=== PATIENT | female | born 1985 | race Caucasian/White ===

== ENCOUNTER 2024-11-20 15:01 | Day surgery (SDC) | payer BC, SELFPAY ==
[2024-11-20] VITALS (9 sets, daily range): BP systolic 104–148; BP diastolic 60–90; BMI 35.3
--- NOTE | 2024-11-20 10:46 | ED.GENMED ---
History of Present Illness
General
Chief Complaint: Problems
Source: patient
Time Seen by Provider: 11/20/24 10:33
History of Present Illness
History of Present Illness:
38-year-old female presents to the emergency room with concern for an ectopic . Patient is known to be with her last menstrual period August. Patient was seen in her analysis tester today and had a routine screening ultrasound
performed in the office. There was concern for an ectopic . Patient has no abdominal pain, vaginal bleeding. She has had 1 previous and does have 1 child.
Past History
Past History
ED Past Medical History: None
ED Past Surgical History: None
Phy Exam
Physical Exam
Physical Exam:
General: Awake, Alert, Oriented X3. No acute distress.
Vitals: unremarkable
Head: Atraumatic
Eyes: Pupils equal, EOMI
Throat: Airway intact, no exudates
Neck: Trachea midline
Lungs: Clear and equal b/l
Heart: Regular rate, no murmurs
Abd: Soft, Nontender, No pulsatile mass
Neuro: Nonfocal
Skin: Warm, dry, no rash
Extremities: pulses equal b/l, no edema
Course
Orders/Labs/Results
Orders:
Orders
11/20/24 Lunch
NPO
Allow oral meds: Yes
Allow clear liquids: No
11/20/24 10:33
US 1st Trimester Urgent
Comment:
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
11/20/24 10:50
Type+Screen Urgent
Beta HCG Quantitative Urgent
Is this a screen?: No
Complete Blood Count/No Diff Urgent
Comprehensive Metabolic Panel Urgent
11/20/24 13:49
Fentanyl Citrate/Pf [Sublimaze] 100 mcg .ROUTE .STK-MED ONE
Midazolam HCl [Versed] 2 mg .ROUTE .STK-MED ONE
11/20/24 13:52
Lidocaine HCl/Pf [Xylocaine-Mpf 1% Vial] 50 mg .ROUTE .STK-MED ONE
Phenylephrine [Adam-Synephrine] 10 mg .ROUTE .STK-MED ONE
Propofol [Diprivan] 20 ml .ROUTE .STK-MED
Rocuronium Modena [Rocuronium] 50 mg .ROUTE .STK-MED ONE
11/20/24 13:54
HYDROmorphone [Dilaudid] 0.25 mg IV PACU-Q5MPRN PRN
HYDROmorphone [Dilaudid] 0.5 mg IV PACU-Q5MPRN PRN
Meperidine [Demerol] 12.5 mg IV PACU-Q5MPRN PRN
Ondansetron Injectable [Zofran] 4 mg IV PACU-ONCEPRN PRN
Prochlorperazine [Compazine] 5 mg IV PACU-ONCEPRN PRN
Rocuronium Modena [Rocuronium] 50 mg .ROUTE .STK-MED ONE
Notify MD As Directed
Notify physician if: for SDS patients with known or suspected sleep obstructive sleep apnea, monitor in the
PACU.
Notify MD for any apneic/desaturation episodes
O2 Therapy [RESP] Urgent
Titrate/Wean O2 to maintain O2 sat greater than (%): 92
Special Instructions: -Provide supplemental oxygen to achieve O2 sat of 92% or greater.
-After 15 min, may wean O2 and discontinue if patient is able to maintain O2 sat of 92%
or greater during recovery period.
If patient is a discharge home, without oxygen therapy, notify anestheiologist if
unable to maintain O2 SAT of 92% or greater on room air for MD clearance.
11/20/24 13:56
Phenylephrine HCl/0.9% NaCl [Adam-Synephrine] 1,000 mcg .ROUTE .STK-MED ONE
11/20/24 13:57
Dexmedetomidine HCl [Precedex] 200 mcg .ROUTE .STK-MED ONE
11/20/24 14:00
0.9% Sodium Chloride 500 ml [Nss] 500 ml IV 125 mls/hr
Normosol (Mult Electrolytes) [Normosol-R/Plasmalyte-A] 1,000 ml IV PER PROTOCOL
11/20/24 14:08
Bupivacaine Mpf 0.25% [Sensorcaine-Mpf 0.25% Vial] 30 ml .ROUTE .STK-MED ONE
11/20/24 14:29
Dexamethasone Sod Phosphate [Decadron] 20 mg .ROUTE .STK-MED ONE
Magnesium Sulfate 5 grams .ROUTE .STK-MED ONE
Ondansetron Injectable [Zofran] 4 mg .ROUTE .STK-MED ONE
11/20/24 14:35
Acetaminophen 1000MG/100Ml [Ofirmev] 1,000 mg in 100 ml .ROUTE .STK-MED
11/20/24 14:54
HYDROmorphone [Dilaudid] 1 mg .ROUTE .STK-MED ONE
11/20/24 14:57
Rocuronium Modena [Rocuronium] 50 mg .ROUTE .STK-MED ONE
Abnormal Lab Results
11/20/24
10:50
RBC 3.98 L 10^6/uL
(4.20-5.40)
Hct 33.4 L %
(37.0-47.0)
Chloride 109 H mmol/L
(98-107)
BUN 19 H mg/dl
(7-17)
Creatinine 1.1 H mg/dL
(0.6-1.0)
11/20/24 10:50
11/20/24 10:50
Vital Signs
Initial and Last Documented VS:
Initial Vital Signs
Temp Pulse Resp BP Pulse Ox
98.6 F 62 16 146/90 99
11/20/24 10:28 11/20/24 10:28 11/20/24 10:28 11/20/24 10:28 11/20/24 10:28
Last Documented Vital Signs
Temp Pulse Resp BP Pulse Ox
98.6 F 62 16 148/81 99
11/20/24 10:28 11/20/24 10:28 11/20/24 10:28 11/20/24 10:45 11/20/24 10:45
Information
Weeks gestation: Weeks: (6)
Location: Location: (ectopic)
MDM/Problems Addressed
Differential Diagnosis Includes:
Ectopic , intrauterine , nondiagnostic ultrasound
MDM/Problems Addressed:
Patient presents after abnormal ultrasound in an outpatient setting. We will obtain a formal ultrasound and an hCG. CMP ordered as well in case she needs methotrexate.
Ultrasound confirmed the presence of a right adnexal lesion suggestive of a ectopic . There is no yolk sac or pole identified. The patient remains hemodynamically stable and does not really have any abdominal pain. A quantitative
hCG was found to be greater than 10,000. Dr. Rajan came and evaluated the patient here at bedside. Decision made to treat this ectopic operatively. Patient instructed to remain NPO.
*Radiology
Radiology exam reviewed: radiology read reviewed
*Critical Care Note
Total Time (30-74mins, 75-104mins- exclusive of procedures): Not Applicable
ED Attending Note
-
Portions of this chart may have been created with voice recognition software.� Occasional wrong word or��sound alike� substitutions may have occurred due to the inherent limitations of voice recognition software.
Discharge Plan
Departure
Patient Disposition: OR
Date of Disposition: 11/20/24
Time of Disposition: 13:44
Admit to: OR
Presentation/result/management discussed w/ accepting MD/DO: Dr Casiano
Condition: Fair
Discharge Problem:
Ectopic
Prescriptions:
No Action
labetalol 300 mg Tablet
300 mg PO BID
PNV cmb#95-ferrous fumarate-FA [] 28 mg iron- 800 mcg Tablet
1 tab PO DAILY
Referrals:
Michael Wong MD [Family Provider] -
Interventions
Interventions:
*Risk Screen - Suicide Last Done: 11/20/24 10:30
*General Assessment Last Done: 11/20/24 10:30
*Neglect/Abuse Screening Last Done: 11/20/24 10:35
*ED- Fall Risk Assessment Last Done: 11/20/24 10:37
*ED COVID-19 Vaccine History Last Done: 11/20/24 10:37
*Nursing Disposition Last Done: 11/20/24 13:53
ED-Female Genitourinary Assessment Last Done: 11/20/24 10:36
Discharge Date and Time
Discharge Date/Time: 11/20/24 15:00
Print Language: NEPALI
[2024-11-20 11:14] LABS: Hematocrit 33.4 % (37.0-47.0); Mean Corp Hgb Conc. 35.9 g/dL (33.0-37.0); Mean Corpuscular Hgb 30.2 pg (27.0-31.0); Mean Corpuscular Volume 83.9 fL (81.0-99.0); Mean Platelet Volume 9.7 fL (7.4-10.4); Platelet Count 185 10^3/uL (130-400); Red Blood Cell Count 3.98 10^6/uL (4.20-5.40); Red Cell Dist. Width 12.3 % (11.5-14.5); White Blood Cell Count 6.4 10^3/uL (4.8-10.8)
[2024-11-20 11:24] LABS: ALT (SGPT) 13 U/L (0-35); AST (SGOT) 15 U/L (14-36); Albumin 4.2 g/dl (3.5-5.0); Alkaline Phosphatase 41 U/L (38-126); Blood Urea Nitrogen 19 mg/dl (7-17); Calcium 9.4 mg/dl (8.4-10.2); Carbon Dioxide 24 mmol/L (22-30); Chloride 109 mmol/L (98-107); Estimated Creatinine Clearance 87 ml/min; Glucose 92 mg/dl (70-99); Potassium 4.1 mmol/L (3.5-5.1); Sodium 140 mmol/L (135-145); Total Bilirubin 0.4 mg/dl (0.2-1.3); Total Protein 6.6 g/dl (6.3-8.2); eGFR > 60.00
--- NOTE | 2024-11-20 13:26 | HP.FOC2 ---
Focused History & Physical
Chief Complaint
HPI:
Chief Complaint: Right Ectopic
HPI / Indication for Planned Procedure: 38yo who should be 9wks by LMP presented to the office today for a routine OB visit. She had an US that showed suspicion for an ectopic . She was then sent to the ER for further
evaluation. She denies pelvic pain, VB. Overall feels well.
In the ER, US showed a round thick walled structure in the right adnexa separate from the right ovary, measuring 3x 2.7x 2.7cm. No FP or YS but still concerning for a tubal ectopic.
Her HCG today is 10,140
Relevant Past Medical History: Hypertension and Other (Polycystic Kidney Disease)
Relevant Social History: Negative
Relevant Family History: Positive for (Mom- Breast CA, father- Polycystic Kidney Disease)
Relevant Past Surgical History: Positive for ( Section, Oral Surgery)
Review of Systems
Review of Pertinent Systems: All Systems Negative
Medication
See Medication form for detailed medications: Yes
Medication List (including Herbals & OTC):
ferrous sulfate 325 mg (65 mg iron) tablet (iron) 325 mg PO DAILY Supplement 12/30/22
labetalol 200 mg tablet 200 mg PO BID Blood Pressure 12/30/22
prenat.vits,avery,hia-qdnb-iqjma 1 tab PO DAILY Supplement 01/12/23
acetaminophen 325 mg tablet 650 mg (2 x 325 mg) PO Q4HPRN PRN mild pain #0 tabs 01/16/23
ibuprofen 600 mg tablet 600 mg PO Q6HPRN PRN cramps #0 tabs 01/16/23
sennosides 8.6 mg-docusate sodium 50 mg tablet (Senna Plus) 1 tab PO DAILYPRN PRN constipation #0 tabs 01/16/23
simethicone 80 mg chewable tablet 80 mg PO TIDPRN PRN flatulence #0 tabs 01/16/23
Medications Reviewed: Yes
Allergies and Reactions
Patient has Allergies: No
Noted Allergies and Reactions:
Allergy/AdvReac Type Severity Reaction Status Date / Time
No Known Allergies Allergy Verified 11/20/24 10:27
Pertinent Physical Exam
All Other Systems: Negative
Abdomen: Normal
Diagnosis / Assessment
38yo with suspected right ectopic
Plan / Procedure
I reviewed with patient and the findings on her US and results of her lab work today. Expressed that there is currently no concern for rupture of the ectopic and she is hemodynamically stable. I reviewed the two management options for an
ectopic. 1. MTX- and the surveillance and possible risk for future rupture associated with this 2. Surgery- and the risks of surgery including injury to surrounding structures, bleeding, need for additional unplanned procedure.
I explained that given her high HCG >10K, I think she is at high risk for treatment failure and subsequent rupture. Thus, I recommend doing surgical management. After deliberation with her , they ultimately agree to proceed with surgery.
Consents signed and OR called
Anesthesia/Sedation to be done by Anesthesia Provider: Yes
Vital Signs and Labs
-
Vital Signs and Labs:
Vital Signs
Temp Pulse Resp BP Pulse Ox
98.6 F 62 16 148/81 99
11/20/24 10:28 11/20/24 10:28 11/20/24 10:28 11/20/24 10:45 11/20/24 10:45
Lab Results
11/20/24 10:50
11/20/24 10:50
Sodium 140 mmol/L (135-145) 11/20/24 10:50
Potassium 4.1 mmol/L (3.5-5.1) 11/20/24 10:50
BUN 19 mg/dl (7-17) H 11/20/24 10:50
Glucose 92 mg/dl (70-99) 11/20/24 10:50
Calcium 9.4 mg/dl (8.4-10.2) 11/20/24 10:50
HC,140
== END 2024-11-20 19:45 | disposition home or self-care (01) ==
LOC: SDS 15:01
PROVIDERS: ATTENDING PHYSICIAN Obstetrics & Gynecology; EMERGENCY PHYSICIAN Emergency Medicine; FAMILY PHYSICIAN Obstetrics & Gynecology
DX: O00.101 Right tubal pregnancy without intrauterine pregnancy (principal); D25.9 Leiomyoma of uterus, unspecified; N80.00 Endometriosis of the uterus, unspecified
CPT/HCPCS: 59151; 88304; 88305; 76801; 80053; 84702; 85027; 86850; 86900; 86901; C1776